=== PATIENT | male | born 1950 | race Caucasian/White ===

== ENCOUNTER 2016-07-25 19:30 | Inpatient (IN) | payer MEDICARE, OTHER ==
--- NOTE | ~2016-07-25 | EEG ---
Electroencephalogram [facility] [address] [place]. [address] NAME: IAM DELUNA : 50 STATUS : ADM IN PAT#: [id number] AGE: 65 ADM/REG DATE : 07/26/16 MR#: [id number] REPORT SERV DATE: 07/29/16 DICTATED BY: DATE: REPORT STATUS : Draft TRANSCRIBED BY: MODL DATE: 07/29/16 CLINICAL INDICATION: Seizure. DESCRIPTION: This EEG was performed using 10/20 electrode placement system. During the EEG study, symmetric background activity was noted with predominant occipital rhythm of roughly 11 hertz. Photic stimulation was performed with appropriate driving response. Hyperventilation was not performed secondary to the patient's underlying medical condition and COPD exacerbation. The patient during the EEG study was noted to have episodes of jerking episodes with associated transient spike and wave discharge. The patient in addition was noted to have two clinical seizure events with the patient noted to have jerking and shaking episodes. synchronous in the bilateral lower extremity. EEG was reviewed. Prior to the jerking episodes, no clear abnormality was seen with underlying background rhythm. After the clinical events, the patient was noted to have immediate return to baseline background activities. The patient subsequently achieved drowsy as well as stage I and II sleep with appropriate sleep spindles. No clear electrographic seizure was otherwise noted with the patient's clinical event. INTERPRETATION: This EEG study obtained during awake, drowsy as well as stage I and II sleep may be considered abnormal secondary to presence of two clinical events without association of underlying electrographic seizure. The patient in addition was also noted to have jerking episodes with transient spike and wave discharge concerning for the presence of both nonepileptic event as well as mild chronic seizure activities. Clinical correlation is recommended. [facility]/MODL Phillip Bull MD / [id number] CC: Larry Kern MD
--- NOTE | ~2016-07-25 | DS ---
Discharge Summary [facility] [address] [place]. [address] NAME: IAM DELUNA : 50 STATUS : DIS IN PAT#: [id number] AGE: 65 ADM/REG DATE : 07/26/16 MR#: [id number] REPORT SERV DATE: 07/31/16 DICTATED BY: MEENAKSHI KERN DATE: 07/30/16 REPORT STATUS : Draft TRANSCRIBED BY: MODL DATE: 07/30/16 ADMISSION DATE: 07/26/2016 DISCHARGE DATE: 07/30/2016 REASON FOR ADMISSION: Acute on chronic COPD exacerbation, uncontrolled diabetes. HPI: Please refer Dr. Arvin Villanueva's history and physical dated 07/26 for complete details regarding the patient's admission. In brief, the patient was admitted to the Hospitalist Service for acute on chronic COPD exacerbation. HOSPITAL COURSE: Several issues were addressed. 1. Acute on chronic COPD exacerbation. The patient continues to have ongoing tobacco abuse. He was counseled. He was admitted for COPD exacerbation, started on IV Solu- Medrol which was then switched over to 40 mg of p.o. prednisone. On the day of discharge, he had some mild wheezing, but he has never been on any oxygen. He is wheeling himself around the halls and off the floor very frequently. 2. Uncontrolled insulin-dependent diabetes. The patient states that he takes NovoLog 30 units twice a day along with Levemir 15 units in the morning and 10 units at bedtime; however, we checked an A1c and it was 15.5%. He was not allowing us to use extra insulin or adjust his insulin as he was adamant about using his home regimen. His diabetes was likely worsened by the use of steroids and I suspect the patient is very noncompliant with his insulin. 3. History of diastolic dysfunction. He was placed on Bumex prior to my assumption of care. An echocardiogram had been ordered; however, unable to obtain due to patient being off the floor. This was subsequently canceled. Likely had an acute on chronic diastolic heart failure exacerbation that was present on admission, which has now resolved. 4. Seizure disorder. Patient states that he has been taking 400 mg of Dilantin at nighttime along with his Keppra; however, he states that when he moved here recently, he had lost all of his medications from the [employer] flight and has not been on Dilantin since he arrived a week ago nor was he taking it a week prior to his arrival, so he has been off Dilantin for least 2 weeks. He was then restarted on Dilantin and Keppra. 5. Pseudo-seizure while having an EEG which did not demonstrate any seizure activity. The patient had a possible pseudo-seizure versus seizure at nighttime. Dr. Villanueva had ordered a CT scan of his head and IV Ativan. Neurology was consulted. CT scan of his head did not show any acute process. Neurology had evaluated the patient the following day, recommended MRI, MRA, and EEG. The patient had an MRI of his brain which showed no acute process, but a small 2 mm old infarct right thalamus which is stable. He had an MRA of his neck and head which was unremarkable. The patient had an EEG and had a pseudo-seizure activity while EEG was ongoing. He had some jerking episodes which appear to be quite like seizure activity, but again this occurred while he was on EEG and Neurology did not feel that he was having a seizure activity. He did not receive any Ativan and he came back to baseline shortly thereafter. 6. PTSD. Patient was requesting his Xanax which was restarted. 7. Chronic dependency on narcotics. Patient takes Unity /325 mg three times a day which Discharge Summary [address] [address] NAME: IAM DELUNA : 50 STATUS : DIS IN PAT#: [id number] AGE: 65 ADM/REG DATE : 07/26/16 MR#: [id number] REPORT SERV DATE: 07/31/16 DICTATED BY: MEENAKSHI KERN DATE: 07/30/16 REPORT STATUS : Draft TRANSCRIBED BY: MODL DATE: 07/30/16 was restarted. The patient has been somewhat noncompliant and off the floor frequently. He has reached maximal hospitalization, and will be discharged home today in stable condition. DISCHARGE DIAGNOSES: Acute on chronic COPD exacerbation, now resolving, chronic headaches, pseudo-seizure history, noncompliance with medical therapy in the hospital and at home, poorly-controlled insulin-dependent diabetes with HbA1c of 15%, PTSD related to his service in [place], chronic dependency of narcotics, possible acute on chronic diastolic heart failure exacerbation versus cor pulmonale, unable to obtain an echocardiogram, persistent tobacco abuse. No signs of infection. PROCEDURES: Include Neurology consult, EEG, MRI of the brain, MRA of the head and neck. CT scan of the head without contrast, chest x-ray. DISCHARGE MEDICATIONS: Include Xanax 0.5 mg twice a day, #22 given, Lipitor 40 mg at bedtime, Plavix 75 mg daily, Bumex 1 mg daily, Zantac 150 mg twice a day, Neurontin 100 mg three times a day, Keppra 1000 mg twice a day, insulin aspartate 30 units twice a day, Levemir 15 units in the morning and 10 units at bedtime, lisinopril 40 mg daily, metoprolol 50 mg twice a day, Dilantin 400 mg at bedtime, trazodone 300 mg at bedtime prescription given, prednisone 40 mg once a day for 3 days, Unity 10/325 mg three times a day p.r.n. #30 given, albuterol p.r.n., Symbicort two puffs twice a day, Spiriva daily. [facility]. This is Meenakshi Kern MD, spending over 30 minutes in discharge planing and coordination of care on Mr. Deluna. BRIAN/LOIS Meenakshi Kern MD / [id number] CC: Meenakshi Kern MD
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
--- NOTE | ~2016-07-25 | HP ---
History And Physical [place] [id number] [facility] [place]. [address] NAME: IAM DELUNA : 50 STATUS : ADM Irish PAT#: [id number] AGE: 65 ADM/REG DATE : 07/25/16 MR#: [id number] REPORT SERV DATE: 07/26/16 DICTATED BY: MONCHO LAM DATE: 07/25/16 REPORT STATUS : Draft TRANSCRIBED BY: MODL DATE: 07/25/16 DATE OF ADMISSION: 07/25/2016 CHIEF COMPLAINT: A 65-year-old male presenting with shortness of breath. HISTORY OF PRESENT ILLNESS: The patient's history was obtained through careful interview with patient and his cousin who is a caregiver coupled with review of [facility] medical records. The patient states that for about three days he has had increasing shortness of breath characterized by dyspnea on exertion and a prominent wheeze and a cough productive of a thick greenish sputum. He has developed fevers, chills, dizziness, orthostasis, weakness, and he has been almost falling over sometimes and passing out. His main pain complaint has been lower back pain that is chronic, an aching quality, 7.5 to 8/10 severity. He denies any chest pain or pleurisy. He complains of chronic early satiety with a decreased appetite, often he gags on his food and has had occasional nausea and vomiting. He has lost gradually maybe 30 or 40 pounds over the last several years that he attributes to these above stated symptoms. No lower extremity edema. No orthopnea. No diarrhea. The patient admits that he does not check his blood sugars really at all but that he simply treats his diabetes "by the feel of it," but when the ambulance came to check on him tonight to bring him to the hospital, his blood sugar was in the 300s. REVIEW OF SYSTEMS: Otherwise, a 14-point review of systems was obtained and was negative. PAST MEDICAL HISTORY: 1. Diabetes. 2. Coronary artery disease, status post stent placement. 3. COPD. 4. Pneumonia with history of sepsis. 5. Seizures. He describes them as "pain induced seizures.". 6. Stroke with residual right-sided hemiparesis in 1997, 2009; one of his strokes was on the right thalamus. 7. Headaches. 8. Upper extremity cellulitis related to a homemade tattoo. 9. Dysphagia. 10.Neuropathy. History And Physical [address] [address] NAME: IAM DELUNA : 50 STATUS : ADM Irish PAT#: [id number] AGE: 65 ADM/REG DATE : 07/25/16 MR#: [id number] REPORT SERV DATE: 07/26/16 DICTATED BY: MONCHO LAM DATE: 07/25/16 REPORT STATUS : Draft TRANSCRIBED BY: LOIS DATE: 07/25/16 11.Congestive heart failure. 12.Closed head injury. PAST SURGICAL HISTORY: 1. Lumbar spine surgery. 2. Cholecystectomy. 3. Right carpal tunnel release. ALLERGIES: PENICILLIN, PENEMS, CODEINE, ASPIRIN, AND FLAGYL. SOCIAL HISTORY: He started smoking when he was [age] years old and smokes about two packs per day. He drinks occasional alcohol. He has PTSD related to being a [place] . He lives with his cousin, who is the caregiver, and her . He has a total of four children, 12 grandchildren, 12 great grandchildren. FAMILY HISTORY: Heart disease. CURRENT MEDICATIONS: Include albuterol inhaler, Lipitor 40 mg p.o. daily, Symbicort two puffs inhaled twice a day, Plavix 75 mg p.o. daily, Neurontin 100 mg p.o. t.i.d. hydrocodone three times a day as needed, NovoLog 30 units subcutaneous twice a day, Levemir 15 units subcutaneous in the morning and 10 units subcutaneous at night, Keppra 1000 mg p.o. b.i.d., lisinopril 40 mg p.o. daily, Lopressor 50 mg p.o. b.i.d., Dilantin 100 mg p.o. q.8 hours, Zantac 150 mg p.o. b.i.d., and Spiriva inhaled daily. PHYSICAL EXAMINATION: VITAL SIGNS: Temperature 98.2, pulse 98, blood pressure 117/63, respiratory rate 12, and O2 saturation 98% on 2 L nasal cannula. GENERAL: An ill-appearing male, in evidence of distress from shortness of breath and cough. HEENT: Pupils equal, round, and reactive to light. No conjunctival pallor. No scleral icterus. Nares are patent. Oropharynx is clear of obstruction. Moist mucous membranes. NECK: Trachea midline. No thyromegaly. LYMPH: No cervical lymphadenopathy. No supraclavicular lymphadenopathy. RESPIRATORY: Inspiratory and expiratory wheezes auscultated throughout with very harsh upper respiratory rhonchi. No focal egophony. No rales. The patient has a labored respiratory effort. CARDIOVASCULAR: Regular rate and rhythm. No murmurs, rubs, or gallops. No extremity edema is appreciated. ABDOMEN: Soft, nontender, and nondistended. Normal bowel sounds auscultated throughout. No hepatosplenomegaly. DERMATOLOGIC: Warm and dry extremities. No pallor. No cyanosis. PSYCHIATRIC: Normal affect. Good mood. Alert and oriented x3. LABORATORY DATA: White blood cell count 13.4, hemoglobin 13.6, hematocrit 41, and platelets 210. Sodium 137, potassium 4.2, chloride 98, bicarb 27, BUN 9, creatinine 0.92, glucose 366. Brain natriuretic peptide 143. INR 0.9. Liver enzymes within normal limits. History And Physical [address] [address] NAME: IAM DELUNA : 50 STATUS : ADM Irish PAT#: [id number] AGE: 65 ADM/REG DATE : 07/25/16 MR#: [id number] REPORT SERV DATE: 07/26/16 DICTATED BY: MONCHO LAM DATE: 07/25/16 REPORT STATUS : Draft TRANSCRIBED BY: LOIS DATE: 07/25/16 STUDIES: 1. Chest x-ray by my own evaluation shows COPD changes, but no acute infiltrates, no acute abnormality. 2. EKG by my own evaluation shows sinus rhythm, no major abnormalities. ASSESSMENT AND PLAN: 1. Chronic obstructive pulmonary disease exacerbation. Place on IV Solu-Medrol, DuoNeb nebulizers. 2. Systemic inflammatory response syndrome with white blood cell count of 13.4, pulse greater than 90, and tachypnea. Check blood cultures. Check procalcitonin. Check influenza. Start empiric IV antibiotics. 3. Uncontrolled diabetes. Check hemoglobin A1c. Increase dose of baseline Levemir. Obtain a nurse informatics educator consult. Place on sliding scale insulin. Noted the patient has poor compliance with his diabetes management. 4. Suspected gastroparesis with weight loss. Check a gastric emptying study. LU/MODCamila Moncho Lam M.D. / [id number] CC: Sam Tavares Jr, MD
[~2016-07-25 19:30] MED LIST: *UNABLE1; ACCUNE1 INH; ADVAIR250 INH; ALBUTEROL5 INH; AMB10 PO; AMB5 PO; ATROVENT HFA17 MCG INH; CELEXA PO; CELEXA20 PO; CELEXA40 MG PO; CORTOTSUSP OT; D100; D100 PO; DILANTIN PO; FENESIN IR400 MG PO; FLONASE NAS; INSNOV7030 SC; KEPPRA PO; KEPPRA750 MG PO; KLONO1 PO; KLONOPIN PO; L20 PO; LANTUS SC; LANTUSCART SC; LASIX PO; LEVAQUIN750 MG PO; LIPITOR PO; LIPITOR10 PO; LIPITOR20 PO; LOP25 PO; LOP50 PO; METOPROLOL PO; NASAL SPRAY RX NAS; NASAREL29 MCG NAS; NICODERM C21 MG/241 TOP; NITROQUICK0.4 MG SL; NITROSTAT0.4 MG SL; NORCO1 TA2 PO; NORV10 PO; NORVASC PO; NOVOLOG SC; NOVOPEN SC; OXYCOD PO; P10 PO; P20 PO; PCET PO; PROAIR HFA INH; PROVENTSOL INH; SPIRIVA INH; STERAPRED DS10 MG; TAMIFLU PO; TRAZ100 PO; TRAZODONE PO; TRAZODONE300 MG PO; VENTOLIN HFA INH; VENTOLIN HFA PO; VICODINTAB PO; VITAMIN D1000 UNI1 PO; VITD PO; ZYRTEC ALLGY10 MG PO
[2016-07-25 20:37] LABS: BASOPHILS 0.1 %; BASOPHILS ABSOLUTE 0.02 10/3/uL (0.0-0.16); EOSINOPHILS 0.6 %; EOSINOPHILS ABSOLUTE 0.08 10/3/uL (0.0-0.53); ER CBC TAT 0 Hrs 07 Mins; HEMOGLOBIN 13.6 g/dL (13.6-17.8); IMMATURE GRANULOCYTES 0.4 %; IMMATURE GRANULOCYTES ABSOLUTE 0.06 10/3/uL (0.0-0.11); LYMPHOCYTES ABSOLUTE 1.21 10/3/uL (0.67-4.30); MANUAL DIFF NO %; MEAN CORPUS HGB CONC 33.2 g/dL (32.0-36.0); MEAN CORPUSCULAR HEMOGLOB 29.1 pg (26.0-34.0); MEAN CORPUSCULAR VOLUME 87.8 fL (80-100); MEAN PLATELET VOLUME 10.3 fL (9.2-13.0); MONOCYTES 5.3 %; MONOCYTES ABSOLUTE 0.71 10/3/uL (0.21-1.20); NEUTROPHILS 84.6 %; NEUTROPHILS ABSOLUTE 11.32 10/3/uL (2.02-8.40); PLATELET COUNT 210 10/3/uL (150-400); RBC DISTRIBUTION WIDTH 13.1 % (12.0-16.0); RED CELL COUNT 4.67 10/6/uL (4.7-6.1); WHITE BLOOD CELLS 13.4 10/3/uL (4.5-10.5)
[2016-07-25 20:45] LABS: INTERNATIONAL NORMAL RATI 0.9 UNITS (-); PROTIME (NOT ORD) 12.5 SEC (12.0-14.5)
[2016-07-25 21:07] LABS: ALBUMIN 3.5 G/DL (3.5-5.0); CALCIUM, SERUM 8.7 MG/DL (8.5-10.4); CHLORIDE, SERUM 98 MMOL/L (96-112); CREATININE 0.92 MG/DL (0.70-1.30); GFR AFRICAN AMERICAN 101 ML/MIN (>=60); GFR NON AFRICAN AMERICAN 87 ML/MIN (>=60); GLOBULIN 3.4 G/DL (2.5-4.1); POTASSIUM, SERUM 4.2 MMOL/L (3.5-5.3); SGOT(AST) 11 U/L (5-40); SGPT(ALT) 19 U/L (5-65); SODIUM, SERUM 137 MMOL/L (135-148); TOTAL BILIRUBIN 0.4 MG/DL (0-1.2); TOTAL PROTEIN 6.9 G/DL (6.0-8.5)
[2016-07-25 21:09] LABS: ALKALINE PHOSPHATASE 133 U/L (45-117); BUN (BLOOD UREA NITROGEN) 9 MG/DL (6-23); CO2 (CARBON DIOXIDE) 27 MMOL/L (24-34); GLUCOSE, SERUM 366 MG/DL (60-99)
[2016-07-25] MEDS ORDERED: NEUR100 PO (23:08)
[2016-07-25] MEDS ORDERED: NORCO1 TAB PO (23:08)
[2016-07-25] MEDS ORDERED: D100 PO (23:08)
[2016-07-25] MEDS ORDERED: LEVEMIR SC ×2 (23:09)
[2016-07-25] MEDS ORDERED: PLAVIX PO (23:09)
[2016-07-25] MEDS ORDERED: KEPPRA1000 MG PO (23:09)
[2016-07-25] MEDS ORDERED: LIPITOR40 PO (23:09)
[2016-07-25] MEDS ORDERED: NOVOLOG SC (23:09)
[2016-07-25] MEDS ORDERED: ZANTAC150 MG PO (23:09)
[2016-07-25] MEDS ORDERED: LOP50 PO (23:10)
[2016-07-25] MEDS ORDERED: ZESTRIL40 MG PO (23:10)
[2016-07-25] MEDS ORDERED: PROAIR HFA INH (23:10)
[2016-07-25] MEDS ORDERED: SPIRIVA RESPIMAT INH (23:10)
[2016-07-25] MEDS ORDERED: SYMBICORT 160/41 INH INH (23:10)
[2016-07-26 05:48] LABS: INFLUENZA A SCREEN NEGATIVE (NEGATIVE); INFLUENZA B SCREEN NEGATIVE (NEGATIVE)
[2016-07-26 06:56] LABS: CALCIUM, SERUM 7.9 MG/DL (8.5-10.4); CHLORIDE, SERUM 96 MMOL/L (96-112); CREATININE 1.17 MG/DL (0.70-1.30); DILANTIN (PHENYTOIN) 0.9 MCG/ML (10.0-20.0); GFR AFRICAN AMERICAN 75 ML/MIN (>=60); GFR NON AFRICAN AMERICAN 65 ML/MIN (>=60); SGPT(ALT) 22 U/L (5-65); SODIUM, SERUM 134 MMOL/L (135-148); TOTAL BILIRUBIN 0.3 MG/DL (0-1.2); TOTAL PROTEIN 6.3 G/DL (6.0-8.5); TROPONIN I <0.02 NG/ML (<0.05)
[2016-07-26 06:57] LABS: A/G RATIO 0.8 (0.7-1.9); ALBUMIN 2.7 G/DL (3.5-5.0); ALKALINE PHOSPHATASE 106 U/L (45-117); BUN (BLOOD UREA NITROGEN) 14 MG/DL (6-23); CO2 (CARBON DIOXIDE) 21 MMOL/L (24-34); GLOBULIN 3.6 G/DL (2.5-4.1); GLUCOSE, SERUM 466 MG/DL (60-99); POTASSIUM, SERUM 4.3 MMOL/L (3.5-5.3); SGOT(AST) 28 U/L (5-40); ULTRASENSITIVE TSH 0.185 MCIU/ML (0.358-3.740)
[2016-07-26 07:47] LABS: PROCALCITONIN 0.17 ng/mL (<0.5)
[2016-07-26] MEDS ORDERED: TRAZODONE300 MG PO (15:19)
[2016-07-27 05:48] LABS: BASOPHILS 0 %; EOSINOPHILS 0 %; IMMATURE GRANULOCYTES 0.3 %; IMMATURE GRANULOCYTES ABSOLUTE 0.04 10/3/uL (0.0-0.11); LYMPHOCYTES 7.7 %; LYMPHOCYTES ABSOLUTE 1.04 10/3/uL (0.67-4.30); MEAN CORPUS HGB CONC 33.2 g/dL (32.0-36.0); MEAN CORPUSCULAR HEMOGLOB 29.2 pg (26.0-34.0); MEAN CORPUSCULAR VOLUME 87.8 fL (80-100); MEAN PLATELET VOLUME 10.2 fL (9.2-13.0); MONOCYTES 3.3 %; MONOCYTES ABSOLUTE 0.45 10/3/uL (0.21-1.20); NEUTROPHILS 88.7 %; NEUTROPHILS ABSOLUTE 11.98 10/3/uL (2.02-8.40); PLATELET COUNT 197 10/3/uL (150-400); RBC DISTRIBUTION WIDTH 13.1 % (12.0-16.0); RED CELL COUNT 3.77 10/6/uL (4.7-6.1); WHITE BLOOD CELLS 13.5 10/3/uL (4.5-10.5)
[2016-07-27 05:53] LABS: HEMATOCRIT 33.1 % (40.0-51.0); MANUAL DIFF NO %
[2016-07-27 06:03] LABS: A/G RATIO 0.8 (0.7-1.9); ALBUMIN 2.5 G/DL (3.5-5.0); CALCIUM, SERUM 7.8 MG/DL (8.5-10.4); CHLORIDE, SERUM 100 MMOL/L (96-112); CREATININE 1.22 MG/DL (0.70-1.30); GFR AFRICAN AMERICAN 72 ML/MIN (>=60); GFR NON AFRICAN AMERICAN 62 ML/MIN (>=60); GLOBULIN 3.1 G/DL (2.5-4.1); POTASSIUM, SERUM 4.4 MMOL/L (3.5-5.3); SGOT(AST) 9 U/L (5-40); SGPT(ALT) 14 U/L (5-65); SODIUM, SERUM 138 MMOL/L (135-148); TOTAL PROTEIN 5.6 G/DL (6.0-8.5)
[2016-07-27 06:04] LABS: ALKALINE PHOSPHATASE 89 U/L (45-117); BUN (BLOOD UREA NITROGEN) 39 MG/DL (6-23); CO2 (CARBON DIOXIDE) 28 MMOL/L (24-34); GLUCOSE, SERUM 243 MG/DL (60-99); TOTAL BILIRUBIN < 0.1 MG/DL (0-1.2)
[2016-07-27 08:20] LABS: B NATRIURETIC PEPTIDE (BNP) 142.3 PG/ML (< 100.0)
[2016-07-27 10:24] LABS: GLYCOHEMOGLOBIN (HbA1c) 15.5 % (4.7-6.1)
[2016-07-28 10:26] LABS: BUN (BLOOD UREA NITROGEN) 40 MG/DL (6-23); CALCIUM, SERUM 8.6 MG/DL (8.5-10.4); CHLORIDE, SERUM 99 MMOL/L (96-112); CO2 (CARBON DIOXIDE) 25 MMOL/L (24-34); CREATININE 1.09 MG/DL (0.70-1.30); GFR AFRICAN AMERICAN 82 ML/MIN (>=60); GFR NON AFRICAN AMERICAN 71 ML/MIN (>=60); POTASSIUM, SERUM 4.7 MMOL/L (3.5-5.3); SODIUM, SERUM 137 MMOL/L (135-148)
[2016-07-28 10:27] LABS: GLUCOSE, SERUM 328 MG/DL (60-99)
[2016-07-29 05:47] LABS: BASOPHILS 0.1 %; BASOPHILS ABSOLUTE 0.01 10/3/uL (0.0-0.16); EOSINOPHILS 0.5 %; EOSINOPHILS ABSOLUTE 0.04 10/3/uL (0.0-0.53); HEMOGLOBIN 13.1 g/dL (13.6-17.8); IMMATURE GRANULOCYTES 0.4 %; IMMATURE GRANULOCYTES ABSOLUTE 0.03 10/3/uL (0.0-0.11); LYMPHOCYTES 33.6 %; LYMPHOCYTES ABSOLUTE 2.52 10/3/uL (0.67-4.30); MEAN CORPUS HGB CONC 32.1 g/dL (32.0-36.0); MEAN CORPUSCULAR HEMOGLOB 28.9 pg (26.0-34.0); MEAN CORPUSCULAR VOLUME 89.9 fL (80-100); MEAN PLATELET VOLUME 10.3 fL (9.2-13.0); MONOCYTES 6.3 %; MONOCYTES ABSOLUTE 0.47 10/3/uL (0.21-1.20); NEUTROPHILS 59.1 %; NEUTROPHILS ABSOLUTE 4.42 10/3/uL (2.02-8.40); PLATELET COUNT 212 10/3/uL (150-400); RBC DISTRIBUTION WIDTH 13.2 % (12.0-16.0)
[2016-07-29 05:48] LABS: HEMATOCRIT 40.8 % (40.0-51.0); MANUAL DIFF NO %; RED CELL COUNT 4.54 10/6/uL (4.7-6.1); WHITE BLOOD CELLS 7.5 10/3/uL (4.5-10.5)
[2016-07-29 06:01] LABS: BUN (BLOOD UREA NITROGEN) 37 MG/DL (6-23); CALCIUM, SERUM 8.3 MG/DL (8.5-10.4); CHLORIDE, SERUM 100 MMOL/L (96-112); CO2 (CARBON DIOXIDE) 27 MMOL/L (24-34); CREATININE 1.16 MG/DL (0.70-1.30); GFR AFRICAN AMERICAN 76 ML/MIN (>=60); GFR NON AFRICAN AMERICAN 66 ML/MIN (>=60); GLUCOSE, SERUM 340 MG/DL (60-99); SODIUM, SERUM 138 MMOL/L (135-148)
[2016-07-29 06:11] LABS: POTASSIUM, SERUM 4.4 MMOL/L (3.5-5.3)
[2016-07-29 07:15] LABS: DILANTIN (PHENYTOIN) 6.1 MCG/ML (10.0-20.0)
[2016-07-29 13:59] LABS: CPK 80 U/L (0-200); T3 UPTAKE 39 % (30-45); T4 (THYROXINE) TOTAL 5.9 MCG/DL (4.5-12.0)
[2016-07-29 14:01] LABS: FOLATE 9.6 NG/ML (>5.2)
[2016-07-29 14:18] LABS: PROCALCITONIN 0.07 ng/mL (<0.5)
[2016-07-30] MEDS ORDERED: X5 PO (12:20)
[2016-07-30] MEDS ORDERED: P20 PO (12:22)
[2016-07-30] MEDS ORDERED: BUM1 PO (12:23)
[2016-11-12] MEDS ORDERED: NORCO1 TAB PO (11:23)
[2016-11-12] MEDS ORDERED: LEVEMIR SC (11:23)
[2016-11-12] MEDS ORDERED: METPAKSF PO (11:24)
== END 2016-07-30 19:00 | disposition home or self-care (01) | DRG 190 ==
LOC: ER 19:30 → CDU1 22:39 → CDU2 23:30 → 5SO 07-26 17:51
PROVIDERS: Emergency Medicine; Internal Medicine; Nurse Practitioner
PROC: 05HC33Z Insertion of Infusion Device into Left Basilic Vein, Percutaneous Approach (ICD-10-PCS; principal; 2016-07-26)
DX: J44.1 Chronic obstructive pulmonary disease with (acute) exacerbation (principal); I50.33 Acute on chronic diastolic (congestive) heart failure; E13.10 Other specified diabetes mellitus with ketoacidosis without coma; R65.10 Systemic inflammatory response syndrome (SIRS) of non-infectious origin without acute organ dysfunction; F11.20 Opioid dependence, uncomplicated; E11.40 Type 2 diabetes mellitus with diabetic neuropathy, unspecified; I69.351 Hemiplegia and hemiparesis following cerebral infarction affecting right dominant side; I45.10 Unspecified right bundle-branch block; I25.10 Atherosclerotic heart disease of native coronary artery without angina pectoris; G40.909 Epilepsy, unspecified, not intractable, without status epilepticus; F43.10 Post-traumatic stress disorder, unspecified; F17.210 Nicotine dependence, cigarettes, uncomplicated; Z95.5 Presence of coronary angioplasty implant and graft; Z79.899 Other long term (current) drug therapy; Z87.820 Personal history of traumatic brain injury; Z91.19 Patient's noncompliance with other medical treatment and regimen; Z88.0 Allergy status to penicillin; Z88.5 Allergy status to narcotic agent; Z88.6 Allergy status to analgesic agent; Z88.8 Allergy status to other drugs, medicaments and biological substances; Z79.02 Long term (current) use of antithrombotics/antiplatelets; Z79.4 Long term (current) use of insulin; Z82.49 Family history of ischemic heart disease and other diseases of the circulatory system
CPT/HCPCS: 36600; 70450; 70544; 70548; 70551; 71010; 80048; 80053; 80061; 80185; 82330; 82550; 82607; 82746; 82803; 82947; 82962; 83036; 83735; 83880; 84132; 84145; 84295; 84436; 84439; 84443; 84479; 84484; 85014; 85025; 85610; 85730; 87040; 87070; 87205; 87449; 87804; 93005; 94640; 95819; 96374; 99285; A9270-GY; J0456; J1953; J2405; J2920; J2930; J3411